=== PATIENT | female | born 1940 | race Two or more races ===

== ENCOUNTER 2020-08-07 10:46 | Outpatient (CLI) | payer OTHER | END 2020-08-07 12:44 | disposition home or self-care (01) | LOC: OFIC 805 10:46 | PROVIDERS: ATTEND Otolaryngology Otology & Neurotology | DX: J38.01 Paralysis of vocal cords and larynx, unilateral (principal); R49.0 Dysphonia; E04.8 Other specified nontoxic goiter ==

== ENCOUNTER 2024-10-09 08:36 | Outpatient (CLI) | payer OTHER | END 2024-10-09 08:57 | disposition home or self-care (01) | LOC: RAD 08:36 | DX: C83.31 Diffuse large B-cell lymphoma, lymph nodes of head, face, and neck (principal); Z45.2 Encounter for adjustment and management of vascular access device ==